=== PATIENT | male | born 1980 | race Caucasian/White ===

== ENCOUNTER 2025-04-07 08:19 | Emergency (ER) | payer OTHER, SELFPAY ==
[2025-04-07 08:28] VITALS: BP 111/80; PULSE 82; RESP 20; TEMP 36.6; O2SAT 97
--- NOTE | 2025-04-07 08:57 | ED_ITS ---
HPI - Eye Problem General Chief complaint: Eye Problems Stated complaint: Left Eye Problem Time Seen by Provider: 04/07/25 08:45 Source: patient and RN notes reviewed Mode of arrival: ambulatory Limitations: no limitations History of Present Illness HPI Narrative: 44-year-old male patient presents [facility] complaining of left eye redness, drainage, and eyelid swelling that started 2-3 days ago. Patient reports the drainage is thick and purulent. Patient denies any eye pain, vision problems, headaches, nausea vomiting, fevers, body aches, chills, any other upper respiratory symptoms, cough, other symptoms. Patient has not tried anything [id number] help with symptoms. Related Data Allergies Allergy/AdvReac Type Severity Reaction Status Date / Time cefaclor Allergy Unknown Unknown Verified 04/07/25 08:38 Review of Systems Review of Systems: CONSTITUTIONAL: Denies fever, body aches, chills, or sweats. EYES: Denies visual changes. Positive for eye redness and discharge, eyelid swelling. ENT: Denies rhinorrhea, congestion, sore throat, or otalgia. CARDIOVASCULAR: Denies chest pain, palpitations, or edema. RESPIRATORY: Denies cough or dyspnea. GASTROINTESTINAL: Denies abdominal pain, nausea, vomiting, or diarrhea. GENITOURINARY: Denies dysuria or hematuria. SKIN: Denies rash or itching. MUSCULOSKELETAL: Denies back pain, joint pain, or myalgia. NEUROLOGIC: Denies headache, numbness, or weakness. PSYCHIATRIC: Denies anxiety or depression. All other systems reviewed are negative, except as documented in HPI. PMFSH Comments At the time of my signature, I reviewed and agree with the nursing past medical, surgical, social, and family history. There is no relevant family history pertinent to the patient complaint. Exam Narrative: GENERAL: This is a well-nourished, well-developed adult, in no apparent distress. They are non ill-appearing, nontoxic appearing. HEAD: normocephalic, atraumatic. EYES: Sclera clear/white. Right Conjunctiva normal. Left conjunctiva injected. Purulent drainage present. Left eye lid scratch state. Left upper eyelid edematous, nontender. Left lower eyelid normal. Right eyelids are normal. Vision is grossly intact. Extraocular movements intact. Pupils PERRLA EARS: External ears normal, Hearing grossly intact. NOSE: External nose normal THROAT: Mucous membranes moist, NECK: Neck supple, non-tender without lymphadenopathy, masses or thyromegaly. CARDIOVASCULAR: Regular rate and rhythm RESPIRATORY: A normal respiratory exam SKIN: warm, Dry, intact with no suspicious lesions or rash, good texture and turgor. NEURO: awake, alert, and oriented to person, place and time. There were no obvious focal neurologic abnormalities. EXTREMITIES: No joint tenderness, effusion, or edema noted. BACK: Nontender without deformity Course Course Emergency Course: Portions of this record may have been created with voice recognition software Level of Care: Express Care Visit Vital Signs Vital signs: Vital Signs Temperature 97.8 F 04/07/25 08:28 Pulse Rate 82 04/07/25 08:28 Respiratory Rate 20 04/07/25 08:28 Blood Pressure 111/80 04/07/25 08:28 Pulse Oximetry 97 04/07/25 08:28 Oxygen Delivery Room Air 04/07/25 08:28 Temperature 97.8 F 04/07/25 08:28 Pulse Rate 82 04/07/25 08:28 Respiratory Rate 20 04/07/25 08:28 Blood Pressure 111/80 04/07/25 08:28 Pulse Oximetry 97 04/07/25 08:28 Oxygen Delivery Room Air 04/07/25 08:28 Reviewed MDM - Eye Problem MDM Narrative Medical decision making narrative: Likely patient has bacterial conjunctivitis. Will treat with polymyxin eye drops. Discussed physical exam findings. Advised supportive measures and signs/symptoms to go to the ER. Pt is appropriate for outpt treatment and f/u. Differential Diagnosis Differential diagnosis: Likely corneal abrasion, conjunctivitis and periorbital cellulitis Critical Care Time Critical Care Time Critical Care Time: No Discharge Plan Discharge Clinical Impression: Bacterial conjunctivitis Patient Disposition: Home Condition: Stable Instructions: Antibiotic Form, Eye Wash (Into the eye), How to Use Eye Drops (ED), Conjunctivitis (ED) Additional Instructions: Your exam today shows Conjunctivitis, You have been given a prescription for eye drops. Use the eye drops as instructed. If you are not better in two (2) days, you need to follow up with an [employer] representative. Do not rub the eye or put anything else in the eye, this can cause abrasions (scratches) on the eye or lead to vision loss. Also it is important not to touch the tube or tip of drops to the eye, as this can cause further infection. Wash your hands very well before instilling the medication. Handwashing can help prevent the spread of disease. Follow up with PCP in 3-5 days Return to ER vision changes, eye pain, headaches, nausea, vomiting, fevers, or any serious concerns Contact [facility] if you need an Aluminum Container Tester Patient Language: Slovak Prescriptions: New polymyxin B sulf-trimethoprim 10,000 unit- 1 mg/mL drops 1 drp LEFT EYE Q3H 7 Days Qty: 10 0RF Rx Instructions: while awake; do not exceed 6 doses in 24 hours Follow-up/Referrals: UNKNOWN,DOCTOR [Primary Care Provider] Time of Disposition: 08:53
== END 2025-04-07 09:00 | disposition home or self-care (01) ==
DX: H10.9 Unspecified conjunctivitis (principal)
CPT/HCPCS: 99203; G0463